=== PATIENT | male | born 1985 ===

== ENCOUNTER 2017-09-20 19:04 | Emergency (ER) | payer SELFPAY ==
--- NOTE | 2017-09-20 19:27 | ED PDOC ---
HPI: Cardiac Arrest Time Seen by Provider: 09/20/17 19:05 Chief Complaint (Nursing): Cardiac Arrest Chief Complaint (Provider): unresponsive (seen on arrival to ER, which was 6: 55pm) History Per: EMS Reason For Code Blue: Full Arrest Circumstances: Brought To ED By EMS Arrest Witnessed By: No One CPR Initiated Prior To MD Arrival?: Yes Down-Time Before ACLS: Unknown Treatment Initiated Prior To MD Arrival: CPR, BVM Ventilations, Intubation, ACLS Medication Initiation, IV Access Medications Given Prior To MD Arrival: Epinephrine, Sodium Bicarb, Other ( Calcium, Narcan) Additional Complaint(s): Per EMS pt was initially carried by his friends from a car into the bedroom because of he was too sedated to get up. They checked on him 2 hours later and found him not responding. CPR was initiated by police and continued by BLS. En route ACLS continued full cardiac arrest ACLS protocol and gave IV Epi (multiple doses), narcan, IV bicarb , IV calcium. His initial rhythm on ACLS arrival was asystole. BLS reports that pt's CPR is ongoing about 25 minutes on arrival to ER. It is unclear exactly when pt's arrest started. EMS report alcohol and possible drug abuse, as per friends on scene. Brother arrived in ER while management was in progress. He has not been with the patient for 2 days. Reports that the patient drinks regularly, but he is unsure of drug use. He denies that the patient has any medical or psychiatric conditions and that patient does not take any medications. - Initial Findings Mentation: Unresponsive Respirations: None (Assisted) Pulse: None Rhythm: Asystole Past Medical History Reviewed: Unable To Obtain Vital Signs: Last Vital Signs Temp Pulse 0 L 09/20/17 19:43 Resp BP Pulse Ox - Medical History PMH: No Chronic Diseases - Family History Family History: States: Unknown Family Hx - Allergies Allergies/Adverse Reactions: Allergies Allergy/AdvReac Type Severity Reaction Status Date / Time Unobtainable Allergy Verified 09/20/17 19:07 Review of Systems Review Of Systems: ROS cannot be obtained secondary to pt's inabilty to answer questions. Physical Exam - Reviewed Nursing Documentation Reviewed: Yes Vital Signs Reviewed: Yes - Physical Exam Appears: Positive for: In Acute Distress (full cardiac arrest) Head Exam: Positive for: ATRAUMATIC, NORMOCEPHALIC Skin: Positive for: Dry, Pallor Eye Exam: Positive for: Other (fixed pupils, no corneal reflex) ENT: Positive for: Other (ETT visualized entering oral cavity, bloody secretions , nose appear normal) Neck: Positive for: Trachea Midline Cardiovascular/Chest: Positive for: Other (No cardiac impulse, no audible cardiac sounds). Negative for: JVD Respiratory: Positive for: Other (Equal chest rise with ventilations via ETT, wet rhonchi heard diffusely) Gastrointestinal/Abdominal: Positive for: Soft. Negative for: Distended, Other (bubbling in epigastrum with ventilations) Male Genital Exam: Positive for: normal genitalia Back: Positive for: Normal Inspection Extremity: Negative for: Pedal Edema, Deformity Neurologic/Psych: Positive for: Other (Unresponsive to any stimuli). Negative for: Alert - Progress ED Course And Treament: ACLS protocol followed and asystole persisted called at 7:18pm Brother informed of management during code and of . He contacted other family members. Body was picked up [employer] due to suspicious circumstances. Disposition - Clinical Impression Clinical Impression: Cardiac arrest Counseled Patient/Family Regarding: Studies Performed, Diagnosis - Disposition Disposition Time: 19:20 Condition:
[2017-09-20 19:48] VITALS: PULSE 0
== END 2017-09-20 22:54 ==
LOC: H.ER 19:04
DX: I46.9 Cardiac arrest, cause unspecified (principal)